=== PATIENT | male | born 1955 | race Caucasian/White ===

== ENCOUNTER 2019-04-19 05:51 | Inpatient (IN) ==
--- NOTE | 2019-04-06 17:16 | PAT Medication Instructions ---
Medication Instructions Date of Service April 06, 2019 Home Medications amlodipine 5 mg PO QAM aspirin 81 mg PO QAM atorvastatin 20 mg PO QAM levothyroxine 50 mcg PO QAM losartan-hydrochlorothiazide 1 tab PO QAM meloxicam 15 mg PO QAM omeprazole 20 mg PO QAM ASK your surgeon for instructions meloxicam 15 mg PO QAM DO NOT take the morning of surgery losartan-hydrochlorothiazide 1 tab PO QAM Take morning of surgery With a small sip of water, OTHERWISE NOTHING TO EAT OR DRINK AFTER MIDNIGHT: amlodipine 5 mg PO QAM aspirin 81 mg PO QAM atorvastatin 20 mg PO QAM levothyroxine 50 mcg PO QAM omeprazole 20 mg PO QAM Other Notes If you have any questions please call us at [phone] or [phone] or [phone] or [phone]
--- NOTE | 2019-04-06 18:38 | History & Physical Report ---
Date of Service April 06, 2019 Date of Surgery: 04-19-19 Assessment & Plan (1) Osteoarthritis of left knee: Risks and benefits of procedure discussed in detail today, patient would like to proceed with a left total knee replacement at [facility] as scheduled. will obtain medical clearance prior to surgery as well as obtain PATs at [facility]. Will place on ASA 81mg po bid x 1 month post op, f/u 2 weeks post op for routine post-operative care and x-ray, sooner if having any problems. will make arrangements for OPPT at the time of discharge. At this point in time, has failed conservative measures and would like to proceed with surgical intervention. History of Present Illness Chief Complaint: left knee pain Primary Care Provider: Cory Cormier Mr Dinh is a 63 year old male who complains of left knee pain, presents for pre-op evaluation prior to a left total knee replacement. He presents with pain and stiffness on the left side. He states that the symptoms have been chronic non-traumatic. The symptoms occur constantly with intermittent worsening. Currently the patient states that the symptoms are moderate. The pain is described as sharp. currently rates his pain as 5/10. The symptoms are aggravated by ascending stairs, daily activities, descending stairs, first steps while awake, weight bearing and walking. In addition to left knee pain the patient is also experiencing joint pain, instability, limping, stiffness, loss of motion, cracking, decreased mobility and pain after activity. Prior NSAIDs include Mobic. previously had a right TKA and is doing well. Allergies Allergy/AdvReac Type Severity Reaction Status Date / Time levofloxacin Allergy Mild NAUSEA AND Unverified 04/04/19 10:07 VOMITING Home Medications Home Medications Medication Instructions Recorded Confirmed Type amlodipine 5 mg PO QAM 04/04/19 04/04/19 History aspirin 81 mg PO QAM 04/04/19 04/04/19 History atorvastatin 20 mg PO QAM 04/04/19 04/04/19 History levothyroxine 50 mcg PO QAM 04/04/19 04/04/19 History losartan-hydrochlorothiazide 1 tab PO QAM 04/04/19 04/04/19 History meloxicam 15 mg PO QAM 04/04/19 04/04/19 History omeprazole 20 mg PO QAM 04/04/19 04/04/19 History Past Med/Surg History Medical History Cancer SKIN CANCER REMOVED FROM NOSE AND CHEST GERD (gastroesophageal reflux disease) Gout Hiatal hernia Hyperlipidemia Hypertension Hypothyroidism Leaky heart valve FOLLOWS WITH DR. 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 Beliefs That Will Affect Care: None Current Living Situation: Spouse Other Information That Helps Us Care for You: No Feels Safe at Home: Yes Safety Concerns: Feels Safe At This Time Smoking Status: Former smoker Tobacco Type: cigarettes and smokeless tobacco Smoking End Date: QUIT OVER 30 YEARS AGO Second Hand Exposure: No Tobacco Cessation Education Requested by Patient: No Hx Alcohol Use: No Hx Substance Use: No Review of Systems Review of Systems: All systems reviewed & are unremarkable except as noted in HPI & below Constitutional: no fever, no chills and no sweats Respiratory: no cough and no dyspnea Cardiovascular: no chest pain, no dyspnea and no orthopnea Gastrointestinal: no abdominal pain, no nausea and no vomiting Musculoskeletal: as per Subjective / HPI Integumentary: no rash and no lesions Physical Exam Physical Exam: Ht: 5ft 4in Wt: 79.4kg BP: 112/68 Pulse: 62 Constitutional: WD/WN, vitals as above no acute distress Respiratory: normal respiratory effort, lungs clear to auscultation Cardiovascular: RRR, no murmur, no edema Gastrointestinal (Abdomen): normal bowel sounds, soft, nontender, no hepatosplenomegaly Musculoskeletal: Left Knee Physical Exam- He ambulates with a limp, no assistance devices, overall varus alignment. There is no erythema, ecchymosis or warmth, no atrophy, +1 effusion, maximum tenderness medial joint line. mild crepitation with motion, mahesh's Negative, posterior drawer negative. positive mcmurrays medially, negative anterior drawer, knee stable with valgus/varus stress. no extensor lag. pain with active range of motion, AROM 0/3/110, Passive ROM 0/3/115. No pain with active/passive ROM of ankle. Lower Extremity Strength normal. Lower Extremity Neuro-vascular is normal Results & Data Diagnostic Findings Left Knee X-ray from February 2019 shows left knee advanced degenerative changes, greatest medial compartments and patellofemoral joint, showing joint space narrowing, osteophyte formation and subchondral sclerosis. no acute bony pathology noted. no loose bodies. overall he has varus alignment.
--- NOTE | 2019-04-07 10:50 | Anesthesiology Consultation ---
Date of Service April 07, 2019 Assessment & Plan (1) Encounter for pre-operative examination: PCP Clearance 04/11: "Cleared for surgery with Dr. Ledezma. Labs reviewed." Chart Review Chart Review: Acceptable Risk for Surgery and Patient seen in Pre Admission Testing Teaching & Discussion Instructed NPO after midnight before surgery, except medications with 15 cc of water. Medication instructions provided according to the PAT guidelines. History Surgery Operation Date: 04/19/19 12:15 Proposed Procedures p Left Total Knee Arthroplasty - Jonathon Ledezma DO Height/Weight Height: 5 ft 4 in Weight: 82.6 kg Allergies Allergy/AdvReac Type Severity Reaction Status Date / Time levofloxacin Allergy Mild NAUSEA AND Unverified 04/04/19 10:07 VOMITING Medications Home Medications Medication Instructions Recorded Confirmed Last Taken amlodipine 5 mg PO QAM 04/04/19 04/04/19 Unknown aspirin 81 mg PO QAM 04/04/19 04/04/19 Unknown atorvastatin 20 mg PO QAM 04/04/19 04/04/19 Unknown levothyroxine 50 mcg PO QAM 04/04/19 04/04/19 Unknown losartan-hydrochlorothiazide 1 tab PO QAM 04/04/19 04/04/19 Unknown meloxicam 15 mg PO QAM 04/04/19 04/04/19 Unknown omeprazole 20 mg PO QAM 04/04/19 04/04/19 Unknown Past Medical History Medical History Cancer SKIN CANCER REMOVED FROM NOSE AND CHEST GERD (gastroesophageal reflux disease) Gout Hiatal hernia Hyperlipidemia Hypertension Hypothyroidism Osteoarthritis Restless leg syndrome Valvular heart disease MILD TRICUSPID, MITRAL AND PULMONIC REGURGITATION Exercise / Class Metabolic Activity II 4-5 Yardwork/Stairs/Walk up hill (Denies CP or SOB with stairs, pt states he is pretty active) Past Family History Family History Unknown Hypertension High cholesterol Father Coronary heart disease Past Surgical History Surgical History H/O hemorrhoidectomy History of bunionectomy RT History of carpal tunnel release RT/LEFT History of colonoscopy History of esophagogastroduodenoscopy (EGD) History of nasal septoplasty History of repair of rotator cuff RT History of tooth extraction History of total knee replacement RT Past Anesthesia History No Hx of Anesthesia Complications and No Family Hx of Anesthesia Complications History of PONV No Hx of PONV (NAUSEA ONLY AFTER SHOULDER SCOPE) and Hx of Motion Sickness (seasick) Social History Smoking Status: Former smoker tobacco type: cigarettes and smokeless tobacco Do You Dip or Chew Tobacco: No (quit 30yrs ago) Smoking End Date: QUIT OVER 30 YEARS AGO Hx Alcohol Use: No Hx Substance Use: No substance use type: does not use Review of Systems Pt denies any recent chest pain, shortness of breath, palpitations, cough, fever or URI. Physical Exam Vital Signs BP: 127/72 P: 59bpm SPO2: 97% RA T: 97.9 F R: 12 ENMT Mouth: + dentures (partial upper); no chipped teeth and no loose teeth Thyromental Distance: < 3.5 Finger Breadths (2.5) Mallampati Class: I Neck + short neck; neck extension not limited Respiratory normal respiratory effort Auscultation: lungs clear to auscultation bilaterally Cardiovascular Rate/Rhythm: regular rate and regular rhythm Heart Sounds: no murmur Vessels: no carotid bruit Extremities: no edema Testing Laboratory Results 03/09/19 WBC: 4.88 H/H: 14.0/41.1 PLATELETS: 289 SODIUM: 142 POTASSIUM: 3.8 CHLORIDE: 109 CO2: 25 BUN: 21.9 CREATININE: 0.91 GLUCOSE: 101 A1C: 5.4% Electrocardiogram Date: 04/07/19 Findings: + NSR @ (60 with 1st degree AV block) No significant change from 01/01/12 EKG. Chest X-Ray Date: 04/07/19 Findings: + NAD Echocardiogram Date: 12/08/18 EF: 55% Normal left ventricular wall motion and ejection fraction. Mild left ventricular hypertrophy. Sclerotic changes involving both the aortic and mitral valve leaflets. Mild mitral, tricuspid, and pulmonic valvular insufficiency. Stress Test Date: 12/08/18 Type: nuclear Resting EF: 54% Normal myocardial perfusion SPECT images without evidence for exercise-induced ischemia. Normal LV wall motion and thickening.
--- NOTE | 2019-04-07 11:35 | XRay Report ---
XR chest Pre-admission PA/Lat HISTORY: 63 years-old Male pat preoperative exam. No acute chest complaints COMPARISON: Chest radiograph 01/01/2012 TECHNIQUE: PA and lateral views of the chest FINDINGS: Cardiomediastinal and hilar silhouettes are within normal limits. Lungs are mildly hyperinflated. The re is no pneumothorax, pleural effusion, focal airspace consolidation or overt pulmonary edema. Bones of the chest appear grossly intact. IMPRESSION: No acute process. The above report was generated using voice recognition software. It may contain grammatical, syntax o r spelling errors. Electronically signed by: Israel Ayon M.D. 04/07/2019 11:33 AM
[2019-04-07 11:58] LABS: Appearance Urine Clear (Clear); Bilirubin Urine Negative (Negative); Blood Urine Negative (Negative); Color Urine Yellow; Glucose Urine UA Negative (Negative); Ketones Urine Negative (Negative); Leukocyte Esterase Urine Negative (Negative); Nitrite Urine Negative (Negative); Protein Urine Negative (Negative); Specific Gravity Urine 1.009 (1.000-1.030); Urobilinogen Urine Negative (Negative)
[2019-04-07 12:08] LABS: Partial Thromboplastin Time 27.4 Seconds (21.0-31.0)
[2019-04-07 12:38] LABS: Estimated Average Glucose 108 mg/dl; Hemoglobin A1C 5.4 % (4.5-5.6)
[2019-04-19] MEDS ORDERED: TRANEXAMIC ACID 1,000 MG **IV Pre-op IV SCH (06:00)
[2019-04-19] MEDS ORDERED: LR 500ML BOLUS, THEN 15ML/HR IV SCH (06:00)
[2019-04-19] MEDS ORDERED: METOCLOPRAMIDE HCL 10 MG TABLET PO SCH (06:00)
[2019-04-19] MEDS ORDERED: dexAMETHasone 4 MG TAB PO SCH (06:00)
[2019-04-19] MEDS ORDERED: ACETAMINOPHEN 500 MG TAB PO SCH (06:00)
[2019-04-19] MEDS ORDERED: FAMOTIDINE 20 MG TAB PO SCH (06:00)
[2019-04-19] MEDS ORDERED: ROPIVACAINE 0.5% HCL/PF 150 MG, BUPIVACAINE 0.5% MPF 30 ML, EPINEPHrine 30MG/30ML (OR U... INFIL SCH (06:00)
[2019-04-19] MEDS ORDERED: CEFAZOLIN 2000MG 2,000 MG/15 ML SYR IV SCH (06:00)
[2019-04-19] MEDS ORDERED: CeleBREX 200 MG CAP PO SCH (06:00)
[2019-04-19] MEDS ORDERED: GABAPENTIN 300 MG PO SCH (06:00)
[2019-04-19] MEDS ORDERED: BUPIVACAINE 0.5 % 5 MG/1 ML PF 10ML VIAL ONE (06:26)
[2019-04-19] MEDS ORDERED: ROPIVACAINE 0.5% 5 MG/ML 30 ML VIAL ONE (06:26)
[2019-04-19] MEDS ORDERED: TRANEXAMIC ACID 1,000 MG **IV Intra-op IV SCH (06:30)
[2019-04-19] MEDS ORDERED: MIDAZOLAM HCL 1 MG/ML 2ML VIAL ONE (06:35)
[2019-04-19] MEDS ORDERED: fentaNYL citrate 100 MCG/2 ML VIAL ONE (06:35)
[2019-04-19] MEDS ORDERED: LIDOCAINE HCL 2% 2 ML VIAL/AMP(20MG/ML) INFIL ONE (06:48)
[2019-04-19] MEDS ORDERED: PROPOFOL IV EMULSION 10 MG/ML 20 ML VIAL IV ONE (06:48)
--- NOTE | 2019-04-19 07:03 | History & Physical Bridge Note ---
Date of Service April 19, 2019 History & Physical Bridge Note I have examined the patient, reviewed the History & Physical and in the interval since the performance of the History & Physical I have noted the following changes of clinical significance: no changes noted
[2019-04-19] MEDS ORDERED: POVIDONE-IODINE OP SOLN 30 ML BTL ONE (07:07)
[2019-04-19] MEDS ORDERED: ORTHO JOINT ANESTHETIC ONE (07:07)
[2019-04-19] MEDS ORDERED: BACITRACIN INJ 50,000 UNIT VIAL ONE (07:07)
[2019-04-19] MEDS ORDERED: fentaNYL citrate 100 MCG/2 ML VIAL IV PRN (07:23)
[2019-04-19] MEDS ORDERED: ONDANSETRON INJ 2 MG/ML 2 ML VIAL IV PRN ×2 (07:23→10:58)
[2019-04-19] MEDS ORDERED: ATROPINE SULFATE 0.1 MG/ML 10ML SYR IV PRN (07:23)
[2019-04-19] MEDS ORDERED: ePHEDrine sulfate 50 MG/ML AMP IV PRN (07:23)
--- NOTE | 2019-04-19 09:14 | Operative Report ---
Post Operative Report Pre & Post Diagnosis Operation Date: 04/19/19 08:20 Pre-Op Diagnosis: Unilateral Primary Osteoarthritis, Left Knee Post-Op Diagnosis: Unilateral Primary Osteoarthritis, Left Knee Procedure Operation Date: 04/19/19 08:20 Actual Procedures p Left Total Knee Arthroplasty(Left) utilizing [employer] non-block total knee arthroplasty size 6 femur 6 tibia 9 polyethylene 32 oval patella- Jonathon Ledezma DO Surgeon Jonathon Ledezma DO Cotton Agent Kemar KHAN Estimated Blood Loss 5 Findings Consistent with Post-Op Diagnosis Patient presents with severe end-stage tricompartmental degenerative disease of left knee no response to conservative management patient said the findings at times surgery consistent with subchondral sclerosis marginal osteophytes [id number] eburnated bone with a moderate to large effusion patient's been no response to conservative management Specimens Bone and cartilage Drains Medium bore Hemovac Complications none Disposition Accompanied Patient To Recovery: No Disposition: Recovery Room Indications Patient presents with severe end-stage tricompartmental degenerative disease left knee no response to conservative management and physical therapy anti- inflammatories relative rest activity modification Visco supplementation corticosteroid injection patient has above intraoperative findings noted to times surgery Description of Procedure After proper prepping and draping of the left lower extremity anterior midline incision was made over the region of the extensor extensor mechanism after meticulous hemostasis was obtained and maintained in subcutaneous tissues a medial parapatellar incision was made The patella was subluxed lateralward the medial lateral gutter were cleaned from any hypertrophic synovitis and scar tissue of the distal femoral block was placed and the distal femoral osteotomy cut was made subsequently the chamfers anterior and posterior osteotomy cuts were made utilizing the 4-in-1 block the tibia was subsequently subluxed anteriorward medial and ateral meniscal remnants were excised in their entirety remnants of the anterior and posterior cruciate ligaments were excised in their entirety excellent exposure of the proximal tibia was obtained the tibial osteotomy guide was placed on the proximal tibial osteotomy cut was made once again the knee was irrigated with copious amounts of sterile saline solution the patella was subsequently everted lateralward thickened scar tissue around the patella was removed the patella was subsequently cut utilizing a freehand technique and was drilled prepared for final preparation and placement of patella socially flexion-extension gaps were checked and the equal and symmetric trials were placed to the appropriate femoral and tibial trials with poly-spacer being placed for equal flexion and extension gaps and full range of motion including extension to 0 and flexion to 140� the trial components after having been taken to recovery range of motion was subsequently removed meticulous hemostasis was obtained and maintained subsequently a knee block injection of joint cocktail including ropivacaine 0.5% 150 mg. Bupivacaine 0.5% epinephrine 1-200,030 mL's toradol 30 mg dexamethasone 4 mg ketamine 10 mg clonidine 100 micrograms normal saline solution 30 mg was infiltrated into the soft tissues of the posterior knee medial lateral gutters and periosteal synovium special attention was paid to protect neurovascular structures at all times subsequently trial components having been removed the knee was irrigated with sterile saline solution. debris was removed the proximal tibia was subsequently prepared and was made ready for the placement of the tibial component tibial component was also cemented and tamped into position the femoral component was subsequently placed and cemented in the position the patellar component was subsequently cemented in position because hemostasis once again obtained and maintained wound having been thoroughly irrigated with debridement and debridement lavage was performed as well as a medial parapatellar incision closed with #1 Vicryl in interrupted fashion subcutaneous was closed with #2 Vicryl skin was closed with skin clips. PA-C was necessary for prepping and drapping as well as wound closure of deep fascia Sub cutaneous tissue and skin and was necessary for the case. A sterile compressive dressing was placed patient was taken to recovery in stable condition of report dictated by Darien I attest to the content of the Intraoperative Record and any orders documented therein. Any exceptions are noted below. I attest to the content of the Intraoperative Record and any orders documented therein. Any exceptions are noted below.
[2019-04-19] MEDS ORDERED: ONDANSETRON INJ 2 MG/ML 2 ML VIAL ONE (09:16)
--- NOTE | 2019-04-19 10:40 | Anesthesiology Progress Note ---
Date of Service April 19, 2019 Anesthesia Post Procedure Vital Signs Vital Signs: Temp Pulse Pulse Pulse Resp BP BP 04/19/19 10:38 97.5 F L 04/19/19 10:35 61 14 04/19/19 10:30 60 12 115/56 L 04/19/19 10:25 61 14 105/62 04/19/19 10:21 65 16 105/63 04/19/19 10:20 64 14 04/19/19 10:15 61 12 96/62 L 04/19/19 10:10 63 14 106/61 04/19/19 10:07 65 12 04/19/19 10:05 66 14 102/47 L 04/19/19 10:04 98.2 F 65 68 14 98/52 L 98/52 L 04/19/19 06:17 98.1 F 64 18 128/83 Pulse Ox 04/19/19 10:38 96 04/19/19 10:35 96 04/19/19 10:30 97 04/19/19 10:25 98 04/19/19 10:21 99 04/19/19 10:20 99 04/19/19 10:15 99 04/19/19 10:10 99 04/19/19 10:07 98 04/19/19 10:05 99 04/19/19 10:04 99 04/19/19 06:17 98 Pain Intensity Left Knee: Pain Intensity: 0 Transfer of Care Handoff Completed per policy Notes Mental Status: alert / awake / arousable and participated in evaluation Patient Amnestic to Procedure: Yes Nausea / Vomiting: adequately controlled Pain: adequately controlled Airway Patency, RR, SpO2: stable & adequate BP & HR: stable & adequate Hydration State: stable & adequate Neuraxial Anesthesia: was administered and sensory block is resolving Anesthetic Complications: no major complications apparent and Pt Satisfied with anesthetic care
[2019-04-19] MEDS ORDERED: MAGNESIUM HYDROXIDE SUSP 30 ML UDC PO PRN (10:58)
[2019-04-19] MEDS ORDERED: NALOXONE HCL 0.4 MG/1 ML VIAL/CARP IV PRN (10:58)
[2019-04-19] MEDS ORDERED: OXYCODONE HCL IR 5 MG TAB (IMMEDIATE RELEASE) PO PRN (10:58)
[2019-04-19] MEDS ORDERED: HYDROmorphone INJ 0.5 MG/0.5 ML SYR IV PRN (10:58)
[2019-04-19] MEDS ORDERED: BISACODYL 10 MG SUPP PR PRN (10:58)
--- NOTE | 2019-04-19 10:58 | XRay Report ---
LEFT KNEE 2 VIEWS History: Left total knee arthroplasty. Degenerative arthritis. Postop. FINDINGS: The patient is status post a left total knee arthroplasty. The hardware is intact. No fract ure or dislocation. Surgical drains are in place. IMPRESSION: Left total knee arthroplasty. No evidence for hardware complication. Electronically signed by: Say Oliveira M.D. 04/19/2019 10:57 AM
[2019-04-19] MEDS ORDERED: SODIUM CHLORIDE 0.9% 1000ML 1,000 ML IV SCH (12:10)
[2019-04-19] MEDS: ACETAMINOPHEN 500 MG TAB PO SCH ×2 (13:12→22:02)
[2019-04-19] MEDS: CEFAZOLIN 2000MG 2,000 MG/15 ML SYR IV SCH (17:09)
[2019-04-19] MEDS: FERROUS GLUCONATE 324 MG TAB PO SCH (17:09)
[2019-04-19] MEDS: DOCUSATE SODIUM 100 MG CAP PO SCH (20:24)
[2019-04-19] MEDS: SENNA 8.6 MG TAB PO SCH (20:24)
[2019-04-19] MEDS: ASPIRIN 81 MG ECTAB PO SCH (20:24)
[2019-04-20] MEDS: CEFAZOLIN 2000MG 2,000 MG/15 ML SYR IV SCH (01:05)
[2019-04-20] MEDS: ACETAMINOPHEN 500 MG TAB PO SCH ×3 (06:02→22:13)
[2019-04-20] MEDS: LEVOTHYROXINE SODIUM 50 MCG TABLET PO SCH (06:02)
[2019-04-20 07:01] LABS: Hemoglobin 10.8 g/dL (14.0-18.0); Mean Corpuscular Volume 84.5 fL (80-100); Mean Platelet Volume 7.8 fL (7.4-10.4); Platelet Count 185 K/uL (130-400); RDW Coefficient of Variation 11.9 % (11.5-14.5); RDW Standard Deviation 37.1 fL (36.4-46.3); Red Blood Count 3.55 M/uL (4.7-6.1)
[2019-04-20 07:30] LABS: BUN Creatinine Ratio 21.4 (10-20); Calcium 8.2 mg/dl (8.5-10.1); Creatinine Clr Calc Pharmacy 75.9 ml/min; Est GFR (African American) 100.1; Est GFR (Non-African American) 86.4; Potassium 3.7 mmol/L (3.5-5.1)
[2019-04-20] MEDS: PANTOprazole 40 MG TAB PO SCH (08:17)
[2019-04-20] MEDS: MULTIVITAMIN TAB PO SCH (08:17)
[2019-04-20] MEDS: ATORVASTATIN 20 MG TAB PO SCH (08:17)
[2019-04-20] MEDS: LOSARTAN/HCTZ 50/12.5MG TAB PO SCH (08:18)
[2019-04-20] MEDS: DOCUSATE SODIUM 100 MG CAP PO SCH ×2 (08:18→20:23)
[2019-04-20] MEDS: ASPIRIN 81 MG ECTAB PO SCH ×2 (08:18→20:23)
[2019-04-20] MEDS: FERROUS GLUCONATE 324 MG TAB PO SCH ×2 (08:18→17:41)
[2019-04-20] MEDS: AMLODIPINE BESYLATE 5 MG TAB PO SCH (08:18)
--- NOTE | 2019-04-20 10:21 | Orthopedic Progress Note ---
Date of Service April 20, 2019 Subjective Postop day 1 status post left total knee arthroplasty. PT/OT protocols today. Weightbearing as tolerated. DVT prophylaxis with aspirin twice daily, Ellie Sagastume. Pain management with acetaminophen, oxycodone, hydromorphone. DC planning-patient is planning on outpatient PT upon discharge. Patient's current Hemovac drainage was 200 cc out of his drain from the last shift. Continue Hemovac at this time. Results & Data Vital Signs (Past 12 Hours) Vital Signs Temp Pulse Pulse Resp BP BP Pulse Ox 04/20/19 07:37 36.6 C 63 16 102/59 L 96 04/20/19 03:55 36.6 C 88 15 112/66 93 04/19/19 23:45 36.7 C 80 15 111/76 97
--- NOTE | 2019-04-20 10:36 | Anesthesiology Progress Note ---
Date of Service April 20, 2019 Anesthesia Post Procedure Vital Signs Vital Signs: Temp Pulse Pulse Pulse Pulse Resp BP 04/20/19 07:37 36.6 C 63 16 04/20/19 03:55 36.6 C 88 15 04/19/19 23:45 36.7 C 80 15 04/19/19 19:48 36.4 C L 74 16 04/19/19 14:50 36.8 C 62 16 04/19/19 13:28 36.8 C 64 20 04/19/19 12:28 36.8 C 68 20 04/19/19 11:55 36.7 C 66 16 04/19/19 11:17 36.5 C 61 16 04/19/19 10:55 36.5 C 62 16 04/19/19 10:40 65 12 103/62 04/19/19 10:38 36.4 C L BP BP Pulse Ox 04/20/19 07:37 102/59 L 96 04/20/19 03:55 112/66 93 04/19/19 23:45 111/76 97 04/19/19 19:48 126/74 98 04/19/19 14:50 103/65 96 04/19/19 13:28 116/64 96 04/19/19 12:28 106/67 97 04/19/19 11:55 111/74 96 04/19/19 11:17 108/70 98 04/19/19 10:55 109/66 96 04/19/19 10:40 95 04/19/19 10:38 96 Pain Intensity Left Knee: Pain Intensity: 0 Notes Mental Status: alert / awake / arousable and participated in evaluation Patient Amnestic to Procedure: Yes Nausea / Vomiting: adequately controlled Pain: adequately controlled Airway Patency, RR, SpO2: stable & adequate BP & HR: stable & adequate Hydration State: stable & adequate Anesthetic Complications: no major complications apparent and Pt Satisfied with anesthetic care
[2019-04-20] MEDS: SENNA 8.6 MG TAB PO SCH (20:23)
[2019-04-21] MEDS: ACETAMINOPHEN 500 MG TAB PO SCH (06:07)
[2019-04-21] MEDS: LEVOTHYROXINE SODIUM 50 MCG TABLET PO SCH (06:07)
--- NOTE | 2019-04-21 07:30 | Orthopedic Progress Note ---
Date of Service April 21, 2019 Assessment & Plan (1) Status post total left knee replacement: POD #1 s/p left TKA pt/ot dvt proph with ADRY/SCD/ASA plan for d/c home with OPPT when stable Subjective POD #2 s/p Left TKA DENIES CP/SOB DENIES FEVER/CHILLS PAIN CURRENTLY 11/24 Review of Systems Constitutional: no fever and no chills Physical Exam Physical Exam: Vital Signs Temp Pulse Resp BP Pulse Ox 04/20/19 23:32 36.8 C 72 15 103/61 97 04/20/19 15:00 36.6 C 60 16 118/73 97 04/20/19 12:24 36.6 C 72 16 143/80 H 98 04/20/19 07:37 36.6 C 63 16 102/59 L 96 Intake and Output 04/20/19 04/21/19 04/21/19 22:59 06:59 14:59 Intake Total 750 / 1400 100 / 1400 Output Total 225 / 600 100 / 600 Balance 525 / 800 0 / 800 Intake: Oral 750 / 1400 100 / 1400 Output: Drain Output 225 / 600 100 / 600 Left Knee Hemo vac 225 / 600 100 / 600 Other: # Unmeasured Voi ds 1 Constitutional: WD/WN, vitals as above no acute distress Musculoskeletal: LEFT LEG: NVDI, calf SNT, negative peter sign. DP palpable, able to wiggle toes/ankle movement without difficulty. prinea dressing clean dry and intact. expected post-operative bruising noted. Results & Data Vital Signs (Past 12 Hours) Vital Signs Temp Pulse Resp BP Pulse Ox 04/20/19 23:32 36.8 C 72 15 103/61 97 Diagnostic Findings LEFT KNEE 2 VIEWS History: Left total knee arthroplasty. Degenerative arthritis. Postop. FINDINGS: The patient is status post a left total knee arthroplasty. The hardware is intact. No fracture or dislocation. Surgical drains are in place. IMPRESSION: Left total knee arthroplasty. No evidence for hardware complication.
[2019-04-21] MEDS: MULTIVITAMIN TAB PO SCH (07:46)
[2019-04-21] MEDS: PANTOprazole 40 MG TAB PO SCH (07:48)
[2019-04-21] MEDS: LOSARTAN/HCTZ 50/12.5MG TAB PO SCH (07:48)
[2019-04-21] MEDS: DOCUSATE SODIUM 100 MG CAP PO SCH (07:48)
[2019-04-21] MEDS: ASPIRIN 81 MG ECTAB PO SCH (07:48)
[2019-04-21] MEDS: FERROUS GLUCONATE 324 MG TAB PO SCH (07:48)
[2019-04-21] MEDS: ATORVASTATIN 20 MG TAB PO SCH (07:48)
[2019-04-21] MEDS: AMLODIPINE BESYLATE 5 MG TAB PO SCH (07:50)
--- NOTE | 2019-04-26 02:12 | Discharge Summary ---
DISCHARGE DIAGNOSIS: Degenerative joint disease, left knee. SECONDARY DIAGNOSES: History of gastroesophageal reflux disease, skin carcinoma, gout, hiatal hernia, hyperlipidemia, hypertension, hypothyroidism, valvular regurgitation, osteoarthritis and restless legs syndrome. CONSULTS: None. COMPLICATIONS: None. PROCEDURES: Left total knee arthroplasty performed by Dr. Ledezma on 04/19/2019. BRIEF HISTORY: As dictated in history and physical. HOSPITAL SUMMARY: The patient was admitted on the above-noted date and had the above-noted surgery performed, which he tolerated well. On the first postoperative day, the patient was remaining stable. Vital signs were stable. He was afebrile and was started on physical therapy and occupational therapy protocol, weightbearing as tolerated. Deep venous thrombosis prophylaxis with aspirin twice daily and ADRY hose and see sequential compression devices, continued on pain management with acetaminophen, oxycodone and hydromorphone. The patient was planning for outpatient physical therapy on discharge. His current Hemovac drainage was 200 mL out of his drain for the last shift, but continued Hemovac at that time. He was continued on his protocol and by 04/21/2019, he had no complaints. Pain was controlled. Vital signs were stable. Neurovascularly, he was intact. Calves were soft and nontender. Toes were mobile. Dressings clean, dry and intact and he was progressing well with his physical therapy and was discharged to home with outpatient physical therapy on 04/21/2019. For further review, please see chart. LABORATORY AND X-RAY DATA: As per chart. DISCHARGE INSTRUCTIONS: The patient was discharged home in satisfactory condition on 04/21/2019. DIET: Regular. ACTIVITY: Weightbearing as tolerated, left lower extremity with walker. Follow TK instruction sheets and special care instructions as noted. Follow up with Dr. Ledezma in 2 weeks. The patient is to call for appointment if one has not been made for. DISCHARGE MEDICATIONS: Acetaminophen 1000 mg p.o. q. 8 hours p.o. t.i.d. , cefadroxil 500 mg p.o. b.i.d., Colace 100 mg p.o. b.i.d. and oxycodone 5 mg p.o. q. 6 hours p.r.n. Resume home medications as listed and stop taking previous aspirin dose and meloxicam. MTDD
== END 2019-04-21 14:05 | disposition home or self-care (01) | DRG 470 ==
LOC: ASU 05:51 → 3E 10:07

== ENCOUNTER 2019-06-10 23:21 | Inpatient (IN) ==
[2019-06-11] MEDS ORDERED: MoRPHine SULFATE 2 MG/ML CARP IV PRN (01:33)
[2019-06-11] MEDS ORDERED: cefTRIAXone SODIUM 1,000 MG/50 ML BAG IV STA (01:33)
[2019-06-11] MEDS ORDERED: ONDANSETRON INJ 2 MG/ML 2 ML VIAL IV PRN ×3 (01:33→11:42)
[2019-06-11] MEDS ORDERED: ACETAMINOPHEN 1,000 MG/100 ML VIAL IV PRN (01:33)
[2019-06-11] MEDS ORDERED: HydrALAZINE HCL 20 MG/ML VIAL IV PRN (01:38)
[2019-06-11] MEDS ORDERED: cefTRIAXone SODIUM 2,000 MG in DEXTROSE 5% 50 ML IV STA (01:50)
[2019-06-11 01:55] LABS: Basophils # (auto) 0.02 K/uL (0-0.2); Basophils % (auto) 0.2 %; Eosinophils # (auto) 0.02 K/uL (0-0.5); Eosinophils % (auto) 0.2 %; Hematocrit (blood only) 35.1 % (42-52); Hemoglobin 12.3 g/dL (14.0-18.0); Immature Granulocytes # (auto) 0.02 K/uL (0.00-0.02); Immature Granulocytes % (auto) 0.2 %; Lymphocytes # (auto) 2.11 K/uL (1.2-3.4); Mean Corpuscular Volume 84.4 fL (80-100); Mean Platelet Volume 7.6 fL (7.4-10.4); Monocytes # (auto) 0.58 K/uL (0.11-0.59); Monocytes % (auto) 6.9 %; Neutrophils # (auto) 5.68 K/uL (1.4-6.5); Neutrophils % (auto) 67.5 %; Platelet Count 211 K/uL (130-400); RDW Coefficient of Variation 12.5 % (11.5-14.5); RDW Standard Deviation 38.3 fL (36.4-46.3); Red Blood Count 4.16 M/uL (4.7-6.1); White Blood Count 8.43 K/uL (4.8-10.8)
[2019-06-11] MEDS: NSS + 20MEQ KCL 20 MEQ/1,000 ML BAG IV SCH ×2 (02:01→15:57)
--- NOTE | 2019-06-11 02:02 | History & Physical Report ---
Date of Service June 11, 2019 Assessment & Plan (1) Traumatic wound dehiscence: Traumatic wound dehiscence of left total knee replacement from 04/19/2019- Admits to medical surgical floor. N.p.o. Check CBC with differential and chemistry profile. NSS + KCl 20 mEq at 100 mils per hour. Acetaminophen 1 g IV every 8 hours PRN mild pain or temperature. Morphine sulfate 2 mg IV every 4 hours as needed severe pain. Activity will be bedrest with bathroom privileges with nonweightbearing left leg. Give ceftriaxone 1 g IV now, due to unclean area where he fell. Consult Dr. Jimenez from [facility] Present on Admission?: Yes (2) Status post total left knee replacement: See above. Present on Admission?: Yes (3) Hypertension: While patient is n.p.o., hold amlodipine, losartan/HCTZ and aspirin. Hydralazine 10 mg IV every 4 hours as needed systolic blood pressure greater than 160. Present on Admission?: Yes (4) Hyperlipidemia: Hold atorvastatin while patient is n.p.o. Present on Admission?: Yes (5) Hypothyroidism (acquired): Hold levothyroxine while patient is n.p.o. Present on Admission?: Yes (6) GERD (gastroesophageal reflux disease): Hold omeprazole. Place on famotidine 20 mg IV x1 this a.m. Present on Admission?: Yes (7) Restless leg syndrome: No symptoms and no treatment at this time. Present on Admission?: Yes (8) Gout: No symptoms and no treatment at this time Present on Admission?: Yes (9) Hiatal hernia: Holding omeprazole, and placing on famotidine IV preoperatively. Present on Admission?: Yes History of Present Illness Chief Complaint: The patient presents to [facility] as a transfer from [facility] where he presented with left knee wound dehiscence post fall. Primary Care Provider: Cory Cormier The patient is a 64-year-old male who underwent a left total knee replacement by Dr. Franko Ledezma during admission from 04/19-04/21/2019. His postop recovery was normal in hospital, and patient reports not having any issues afterwards until yesterday 06/10. Patient reports that he was working outside, when someone he was working above him yelled watch out. As a shingle was falling, to avoid being hit, he took a few quick steps to get out of the way, tripped over wood and other objects on the deck, and landed on his left knee, and immediately noted that the surgical wound had opened and there was a small amount of bleeding. BLS was initially called, and when the patient became lightheaded and dizzy upon seeing the wound, ALS arrived and placed an IV and patient received a 700 cc fluid bolus. He was then taken to [facility], where x-rays were performed. Dr. Jimenez from [facility], who was covering for Dr. Ledezma was contacted, advised the ED physician there to wash the joint out, give 2 g of Ancef IV, and then transfer to [facility] for surgical washout the next day. The [facility] Hospitalist Service was contacted to have the patient transferred and admit the patient to [facility]. Allergies Allergy/AdvReac Type Severity Reaction Status Date / Time levofloxacin [From Levaquin] AdvReac Mild Nausea Verified 04/19/19 06:14 Home Medications Home Medications Medication Instructions Recorded Confirmed Type amlodipine 5 mg PO QAM 04/04/19 04/19/19 History atorvastatin 20 mg PO QAM 04/04/19 04/19/19 History levothyroxine 50 mcg PO QAM 04/04/19 04/19/19 History losartan-hydrochlorothiazide 1 tab PO QAM 04/04/19 04/19/19 History omeprazole 20 mg PO QAM 04/04/19 04/19/19 History oxycodone 5 mg PO Q6H PRN #30 tab 04/21/19 Rx aspirin [Ecotrin Low Strength] 06/11/19 History meloxicam 06/11/19 History Past Med/Surg History Medical History Cancer SKIN CANCER REMOVED FROM NOSE AND CHEST GERD (gastroesophageal reflux disease) Gout Hiatal hernia Hyperlipidemia Hypertension Hypothyroidism Osteoarthritis Restless leg syndrome Valvular heart disease MILD TRICUSPID, MITRAL AND PULMONIC REGURGITATION Surgical History H/O hemorrhoidectomy History of bunionectomy RT History of carpal tunnel release RT/LEFT History of colonoscopy History of esophagogastroduodenoscopy (EGD) History of nasal septoplasty History of repair of rotator cuff RT History of tooth extraction History of total knee replacement RT & LT Social History Preferred Language: Citizen Of [place] Communication Ability: Effective Legal Support Assistant Required: No Beliefs That Will Affect Care: None Current Living Situation: Spouse Other Information That Helps Us Care for You: No Feels Safe at Home: Yes Safety Concerns: Feels Safe At This Time Smoking Status: Former smoker Tobacco Type: cigarettes and smokeless tobacco Do You Dip or Chew Tobacco: No (Quit over 30 yrs ago) Second Hand Exposure: No Tobacco Cessation Education Requested by Patient: No Hx Alcohol Use: No Hx Substance Use: No Review of Systems Review of Systems: The patient denies chest pain, palpitations, shortness of breath, dyspnea on exertion, cough, sore throat, fevers, chills, sweats, weight change, fatigue, nausea, vomiting, diarrhea , constipation, abdominal pain, pelvic pain, blood in urine or stool, dysuria, urinary frequency or urgency,headache, memory loss, loss of consciousness, Focal or generalized weakness, numbness or tingling in arms or right leg, generalized arthralgias or myalgias, back or neck pain, or night sweats. The review of systems is otherwise negative other than for that already noted above, and at least 10 systems have been reviewed. Physical Exam Physical Exam: The patient is awake, alert and oriented 3, well developed and well nourished, lying in bed and in no acute distress. HEENT--PERRL, EOMI, mucous membranes and oropharynx normal. Neck--supple. No JVD. No bruits. Thyroid normal, trachea midline, no adenopathy. Heart--normal S1 and S2. No murmurs, rubs or gallops. Lungs--clear bilaterally, no respiratory distress, no accessory muscle use. Abdomen--normal bowel sounds and soft. Nontender. Nondistended, no hernias or masses, no organomegaly. Extremities--no cyanosis or clubbing. No edema. There are good distal pulses b/l. Dermatologic--normal skin turgor, normal color, no abnormal lymph nodes, no rash. Neurologic--cranial nerves II through XII grossly intact. Rheumatologic--left knee wrapped with wet-to-dry with BEKAH over top as discharged from [facility]. Psychiatric--normal affect. Results & Data Vital Signs (Past 12 Hours) Vital Signs Temp Pulse Resp BP Pulse Ox 07/28/19 01:06 98.4 F 81 18 163/91 H 98 Code Status & VTE Plan Code Status Full code VTE Prophylaxis Plan VTE Prophylaxis will be ordered: Yes PG Care Time/CCT Total # of Minutes Spent Total Time Spent with Patient: Total time spent is greater than 50% in coordination of care (as documented) at patient's floor/unit and/or counseling patient:
[2019-06-11 02:12] LABS: BUN Creatinine Ratio 18.9 (10-20); Calcium 9.2 mg/dl (8.5-10.1); Creatinine Clr Calc Pharmacy 59.2 ml/min; Est GFR (African American) 74.1; Est GFR (Non-African American) 63.9; Potassium 3.8 mmol/L (3.5-5.1)
[2019-06-11 02:15] LABS: Albumin Globulin Ratio 1.2 (0.9-2); Bilirubin,Total 0.4 mg/dl (0.2-1); Globulin 3.4 gm/dl (2.5-4.0); Total Protein 7.4 gm/dl (6.4-8.2)
[2019-06-11 02:25] LABS: Partial Thromboplastin Ratio 0.9; Partial Thromboplastin Time 25.3 Seconds (21.0-31.0); Prothrombin Time 10.6 Seconds (9.0-12.0)
--- NOTE | 2019-06-11 07:36 | Anesthesiology Consultation ---
Date of Service June 11, 2019 Assessment & Plan (1) Encounter for pre-operative examination: Chart Review Chart Review: Acceptable Risk for Surgery Consults Requested none ASA ASA3 Proposed Anesthesia Anesthesia Type: General Risk / Benefits Reviewed With: PT / POA / Parent / Guardian, Accepts Plan and Informed Consent Obtained History Surgery Operation Date: 06/11/19 09:30 Proposed Procedures p Incision and Drainage Knee(Left) - Kvng Jimenez DO s Poly Exchange(Left) - Kvng Jimenez DO Height/Weight Height: 5 ft 4 in Weight: 81.1 kg Allergies Allergy/AdvReac Type Severity Reaction Status Date / Time levofloxacin [From Levaquin] AdvReac Mild Nausea Verified 04/19/19 06:14 Medications Home Medications Medication Instructions Recorded Confirmed Last Taken amlodipine 5 mg PO QAM 04/04/19 04/19/19 04/19/19 04:30 atorvastatin 20 mg PO QAM 04/04/19 04/19/19 04/19/19 04:50 levothyroxine 50 mcg PO QAM 04/04/19 04/19/19 04/19/19 04:50 losartan-hydrochlorothiazide 1 tab PO QAM 04/04/19 04/19/19 04/18/19 11:00 omeprazole 20 mg PO QAM 04/04/19 04/19/19 04/19/19 04:50 oxycodone 5 mg PO Q6H PRN #30 tab 04/21/19 Unknown aspirin [Ecotrin Low Strength] 06/11/19 Unknown meloxicam 06/11/19 Unknown Active Medications Generic Name Dose Route Start Last Admin Trade Name Freq PRN Reason Stop Dose Admin Potassium Chloride/Sodium Chloride 20 meq in 1,000 mls @ 100 mls/hr 06/11/19 01:45 06/11/19 09:12 Normal Saline W/20 Meq Kcl IV 07/11/19 01:44 Infused .Q10H PASCUAL Infusion NPO Date Last Intake of Fluids: 06/11/19 Time Last Intake of Fluids: 00:40 Date Last Intake of Solids: 06/11/19 Time Last Intake of Solids: 00:40 Past Medical History Medical History Cancer SKIN CANCER REMOVED FROM NOSE AND CHEST GERD (gastroesophageal reflux disease) Gout Hiatal hernia Hyperlipidemia Hypertension Hypothyroidism Osteoarthritis Restless leg syndrome Valvular heart disease MILD TRICUSPID, MITRAL AND PULMONIC REGURGITATION Exercise / Class Metabolic Activity II 4-5 Yardwork/Stairs/Walk up hill Past Family History Family History Unknown Hypertension High cholesterol Father Coronary heart disease Past Surgical History Surgical History H/O hemorrhoidectomy History of bunionectomy RT History of carpal tunnel release RT/LEFT History of colonoscopy History of esophagogastroduodenoscopy (EGD) History of nasal septoplasty History of repair of rotator cuff RT History of tooth extraction History of total knee replacement RT & LT Past Anesthesia History No Hx of Anesthesia Complications and No Family Hx of Anesthesia Complications History of PONV No Hx of PONV and No Hx of Motion Sickness Social History Smoking Status: Former smoker tobacco type: cigarettes and smokeless tobacco Do You Dip or Chew Tobacco: No (Quit over 30 yrs ago) Hx Alcohol Use: No Hx Substance Use: No substance use type: does not use Physical Exam Vital Signs Last Vital Signs Temp 97.9 F 06/11/19 07:14 Pulse 70 06/11/19 07:14 Resp 18 06/11/19 07:14 BP 118/69 06/11/19 07:14 Pulse Ox 99 06/11/19 07:14 ENMT Mouth: no dentition abnormality Thyromental Distance: > or= 3.5 Finger Breadths Mallampati Class: II Neck normal visual inspection Respiratory normal respiratory effort Auscultation: lungs clear to auscultation bilaterally Cardiovascular Rate/Rhythm: regular rate and regular rhythm Testing Laboratory Results 06/11/19 01:47 06/11/19 01:47 PT 10.6 Seconds (9.0-12.0) 06/11/19 01:47 INR 1.0 (0.9-1.1) 06/11/19 01:47 APTT 25.3 Seconds (21.0-31.0) 06/11/19 01:47 Electrocardiogram Date: 04/07/19 Sinus rhythm with 1st degree A-V block, rate 60 bpm Otherwise normal ECG When compared with ECG of 01-JAN-2012 13:47, No significant change was found Confirmed by Elton Becker ([id number]) on 04/07/2019 1:05:25 PM Stress Test Date: 12/08/18 Type: nuclear Resting EF: 54% Normal myocardial perfusion SPECT images without evidence for exercise-induced ischemia. Normal LV wall motion and thickening.
[2019-06-11] MEDS ORDERED: FAMOTIDINE 20 MG in SYRINGE 3 ML IV ONE (08:00)
[2019-06-11] MEDS ORDERED: ePHEDrine sulfate 50 MG/ML AMP IV PRN (09:44)
[2019-06-11] MEDS ORDERED: fentaNYL citrate 100 MCG/2 ML VIAL IV PRN (09:44)
[2019-06-11] MEDS ORDERED: ATROPINE SULFATE 0.1 MG/ML 10ML SYR IV PRN (09:44)
--- NOTE | 2019-06-11 10:01 | History & Physical Report ---
Date of Service June 11, 2019 Assessment & Plan (1) Traumatic wound dehiscence: Patient will be taken to the OR today for left knee I & D, poly exchange. All potential risks, benefits, complications, alternatives, and rehab have been discussed with the patient and he wishes to proceed. (2) Status post total left knee replacement: History of Present Illness Chief Complaint: left knee pain and wound dehiscence Primary Care Provider: Cory Cormier This is a patient who had his left knee replaced by Dr. Ledezma ~7-8 weeks ago. He was doing well and states he was about to be discharged from PT. He sustained a fall onto the anterior aspect of the left knee and the incision opened up. He was brought to [facility] to be admitted and he is now being set up for surgical I & D of the knee. Allergies Allergy/AdvReac Type Severity Reaction Status Date / Time levofloxacin [From Levaquin] AdvReac Mild Nausea Verified 04/19/19 06:14 Home Medications Home Medications Medication Instructions Recorded Confirmed Type amlodipine 5 mg PO QAM 04/04/19 04/19/19 History atorvastatin 20 mg PO QAM 04/04/19 04/19/19 History levothyroxine 50 mcg PO QAM 04/04/19 04/19/19 History losartan-hydrochlorothiazide 1 tab PO QAM 04/04/19 04/19/19 History omeprazole 20 mg PO QAM 04/04/19 04/19/19 History oxycodone 5 mg PO Q6H PRN #30 tab 04/21/19 Rx aspirin [Ecotrin Low Strength] 06/11/19 History meloxicam 06/11/19 History Past Med/Surg History Medical History Cancer SKIN CANCER REMOVED FROM NOSE AND CHEST GERD (gastroesophageal reflux disease) Gout Hiatal hernia Hyperlipidemia Hypertension Hypothyroidism Osteoarthritis Restless leg syndrome Valvular heart disease MILD TRICUSPID, MITRAL AND PULMONIC REGURGITATION Surgical History H/O hemorrhoidectomy History of bunionectomy RT History of carpal tunnel release RT/LEFT History of colonoscopy History of esophagogastroduodenoscopy (EGD) History of nasal septoplasty History of repair of rotator cuff RT History of tooth extraction History of total knee replacement RT & LT Family History Unknown Hypertension High cholesterol Father Coronary heart disease Social History Preferred Language: Urdu Communication Ability: Effective Ep[employer] Fabrication Supervisor Required: No Beliefs That Will Affect Care: None Current Living Situation: Spouse Other Information That Helps Us Care for You: No Feels Safe at Home: Yes Safety Concerns: Feels Safe At This Time Smoking Status: Former smoker Tobacco Type: cigarettes and smokeless tobacco Do You Dip or Chew Tobacco: No (Quit over 30 yrs ago) Second Hand Exposure: No Tobacco Cessation Education Requested by Patient: No Hx Alcohol Use: No Hx Substance Use: No Physical Exam Constitutional: WD/WN, vitals as above ENMT: external ear and nose normal, oropharynx normal Neck: trachea midline, no thyromegaly Musculoskeletal: Knee: + surgical incision (left knee: anterior knee incision dehiscence) and + limited ROM of knee; no skin erythema Neurologic: normal touch/pain/proprioception Psychiatric: A+Ox3, euthymic affect Lymphatic: no cervical or axillary lymphadenopathy Results & Data Vital Signs (Past 12 Hours) Vital Signs Temp Pulse Resp BP Pulse Ox 06/11/19 07:14 36.6 C 70 18 118/69 99 06/11/19 03:59 75 119/74 06/11/19 01:06 36.9 C 81 18 163/91 H 98 Code Status & VTE Plan VTE Prophylaxis Plan VTE Prophylaxis will be ordered: Yes
[2019-06-11] MEDS ORDERED: fentaNYL citrate 100 MCG/2 ML VIAL ONE (10:12)
[2019-06-11] MEDS ORDERED: ONDANSETRON INJ 2 MG/ML 2 ML VIAL ONE (10:12)
[2019-06-11] MEDS ORDERED: MIDAZOLAM HCL 1 MG/ML 2ML VIAL ONE (10:12)
[2019-06-11] MEDS ORDERED: LIDOCAINE HCL 2% 2 ML VIAL/AMP(20MG/ML) INFIL ONE (10:12)
[2019-06-11] MEDS ORDERED: PROPOFOL IV EMULSION 10 MG/ML 20 ML VIAL IV ONE (10:12)
[2019-06-11] MEDS ORDERED: BACITRACIN INJ 50,000 UNIT VIAL ONE (10:13)
[2019-06-11] MEDS ORDERED: ePHEDrine sulfate 50 MG/ML SYR ONE (10:56)
[2019-06-11] MEDS ORDERED: BUPIVACAINE 0.5 % 5 MG/1 ML MPF 30ML VIAL ONE (11:31)
[2019-06-11] MEDS ORDERED: TAMSULOSIN HCL 0.4 MG CAP PO PRN (11:42)
[2019-06-11] MEDS ORDERED: METOCLOPRAMIDE HCL INJ 5 MG/ML 2 ML VIAL IV PRN (11:42)
[2019-06-11] MEDS ORDERED: ALUMINUM/MAGNESIUM SUSP 30 ML UDC PO PRN (11:42)
[2019-06-11] MEDS ORDERED: NALOXONE HCL 0.4 MG/1 ML VIAL/CARP IV PRN (11:42)
[2019-06-11] MEDS ORDERED: MAGNESIUM HYDROXIDE SUSP 30 ML UDC PO PRN (11:42)
[2019-06-11] MEDS ORDERED: OXYCODONE HCL IR 5 MG TAB (IMMEDIATE RELEASE) PO PRN (11:42)
[2019-06-11] MEDS ORDERED: HYDROmorphone INJ 0.5 MG/0.5 ML SYR IV PRN (11:42)
[2019-06-11] MEDS ORDERED: BISACODYL 10 MG SUPP PR PRN (11:42)
--- NOTE | 2019-06-11 11:48 | Post Operative Brief Note ---
Immediate Post Op Note v1 Date of Surgery June 11, 2019 Pre & Post Diagnosis Operation Date: 06/11/19 09:30 Pre-Op Diagnosis: Left knee traumatic Wound dehiscence Post-Op Diagnosis: Left knee traumatic Wound dehiscence, Left Knee effusion, Retained sutures Procedure Operation Date: 06/11/19 09:30 Actual Procedures p Irrigation and Debridement Left Knee, Skin, Fascia, and Patellar Tendon, Debridement of wound dehiscence, Removal of sutures, Aspiration left knee joint(Left) - Kvng Jimenez DO Surgeon Kvng Jimenez DO Cold Strip Feeder None Estimated Blood Loss 5 Findings Consistent with Post-Op Diagnosis Specimens Aspirate left knee for cell count with manual differential, Aerobic, Anaerobic and Gram stain Anesthesia Type General Complications none Disposition Accompanied Patient To Recovery: No Disposition: Recovery Room
--- NOTE | 2019-06-11 12:22 | Anesthesiology Progress Note ---
Date of Service June 11, 2019 Anesthesia Post Procedure Vital Signs Vital Signs: Temp Pulse Pulse Resp BP Pulse Ox 06/11/19 12:15 77 16 131/78 96 06/11/19 12:05 73 14 129/75 96 06/11/19 11:55 96.8 F L 81 16 122/79 100 06/11/19 07:14 97.9 F 70 18 118/69 99 06/11/19 03:59 75 119/74 06/11/19 01:06 98.4 F 81 18 163/91 H 98 Pain Intensity Left Lower Knee: Pain Intensity: 2 Transfer of Care Handoff Completed per policy Notes Mental Status: alert / awake / arousable and participated in evaluation Patient Amnestic to Procedure: Yes Nausea / Vomiting: adequately controlled Pain: adequately controlled Airway Patency, RR, SpO2: stable & adequate BP & HR: stable & adequate Hydration State: stable & adequate Anesthetic Complications: no major complications apparent and Pt Satisfied with anesthetic care
[2019-06-11 12:45] LABS: Appearance Synovial Fluid CLOUDY; Color Synovial Fluid AMBER; Mononuclear WBC Synovial 69.8 %; Polynuclear WBC Synovial 30.2 %; RBC Synovial Fluid (A) 18000 /uL; Source Synovial Fluid KNEE; WBC Synovial Fluid (A) 281 /uL (0-200)
[2019-06-11] MEDS: SODIUM CHLORIDE 0.9% 1000ML 1,000 ML IV SCH ×2 (12:50→20:37)
[2019-06-11] MEDS ORDERED: KETOROLAC TROMETHAMINE 15 MG/ML VIAL IV SCH (13:00)
--- NOTE | 2019-06-11 13:01 | Operative Report ---
DATE OF OPERATION: 06/11/2019 PREOPERATIVE DIAGNOSES: 1. Left knee traumatic wound dehiscence. 2. Retained sutures. 3. Traumatic knee effusion. POSTOPERATIVE DIAGNOSES: 1. Left knee traumatic wound dehiscence. 2. Retained sutures. 3. Traumatic knee effusion. PROCEDURES: 1. Left knee irrigation and debridement, wound dehiscence including skin, fascia and patellar tendon. 2. Removal of sutures. 3. Aspiration, left knee effusion. SURGEON: Kvng Jimenez DO FLAGSETTER: None. ANESTHESIA: General with local. SPECIMENS: Left knee aspirate for aerobic, anaerobic, Gram stain and cell count with manual differential. DRAINS: None. COMPLICATIONS: None. BLOOD LOSS: 5 mL. PERTINENT HISTORY: This is a 64-year-old gentleman who is approximately 6 weeks status post total knee arthroplasty performed by Dr. Ledezma. 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 He had pain, swelling, bleeding, and difficulty with ambulation. He was taken to [facility] at which point, he told the staff that he wanted to be taken to [facility] and we made arrangements to the hospitalist service for transfer and eventual closure. Instructed the ER staff to irrigate the left knee, cleansed with Betadine and then packed it with a moist sterile lap sponges and covered with sterile dry dressing and an Gilberto wrap. The patient was n.p.o. and then scheduled for surgery as indicated. All potential risks, benefits, complications, alternatives, rehab, potential for incomplete relief of symptoms, need for further surgery, DVT, PE, , persistent pain, swelling, scarring, weakness, neurovascular injury, wound complications, hardware failure, catastrophic loss of his joint arthroplasty, need for revision, possible for latent infection and compromise of eventual outcome of the arthroplasty was discussed with the patient and his . They both understood the discussion and all questions were answered. The patient was then scheduled for surgery as indicated. DESCRIPTION OF PROCEDURE: The patient was taken to the operative suite, placed supine on the operating table. I reviewed consent and identification of proper operative site, the patient was anesthetized, LMA was placed. Tourniquet was placed high on the left thigh over cast padding. Left lower extremity was then sterilely prepped and draped in usual fashion, elevated and tourniquet inflated to 350 mmHg. Next, the left knee wound dehiscence was expanded proximally and distally approximately 1 cm. Skin rakes were placed. A careful debridement was performed with a 15 blade scalpel, forceps and rongeur. This was performed through the skin, fascia, and patellar tendon. There were sutures noted within the tissue and these were then removed with a hemostat and a forceps. Once all suture material was removed and a debridement had been completed, there was noted to be a large knee effusion in the left knee. At this time, pulsatile lavage was then used to irrigate the wound dehiscence with copious amounts of sterile normal saline with bacitracin 3 liters in total. After the irrigation was completed to insert, a compressive load was applied to the knee joint to assess for any leakage through the joint capsule. There was none, essentially the rationale was that there is a large effusion within the joint and applied pressure load, there should be some extrusion of the fluid into the area of dehiscence if there was communication. There was none. This was considered a fluid load test which the patient successfully passed. Once this was completed, the dehiscence was then closed using buried interrupted 2-0 Vicryl in the dermis and the skin was then closed using 3-0 nylon sutures. Next, an 18-gauge needle and 60 mL syringe was then used to aspirate the effusion of the left knee and this was sent for specimen, aerobic, anaerobic, Gram stain, cell count and manual diff to the laboratory. Next, an approximately 20 mL 0.5% Marcaine plain was injected around the wound dehiscence site for postoperative pain control and a sterile compressive dressing and a double Gilberto wrap was then applied to the left lower extremity. The tourniquet was released. The patient was awakened and taken to recovery in stable condition. I attest to the content of the Intraoperative Record and any orders documented therein. Any exception s are noted below.
[2019-06-11] MEDS: ACETAMINOPHEN 500 MG TAB PO SCH ×2 (14:29→21:40)
[2019-06-11] MEDS: CEFAZOLIN 2000MG 2,000 MG/15 ML SYR IV SCH ×2 (14:30→20:37)
[2019-06-11] MEDS: KETOROLAC TROMETHAMINE 15 MG/ML VIAL IV SCH ×2 (14:35→19:21)
--- NOTE | 2019-06-11 16:47 | Hospitalist Progress Note ---
Date of Service June 11, 2019 Assessment & Plan (1) Traumatic wound dehiscence: Traumatic wound dehiscence of left total knee replacement from 04/19/2019- S/p left knee replacement I&D with Dr. Jimenez Acetaminophen 1 g IV every 8 hours PRN mild pain or temperature. Morphine sulfate 2 mg IV every 4 hours as needed severe pain. Activity will be bedrest with bathroom privileges with nonweightbearing left leg. Cefazolin per ortho (2) Status post total left knee replacement: See above. (3) Hypertension: Resume amlodipine, losartan/HCTZ and aspirin. (4) Hyperlipidemia: resume atorvastatin (5) Hypothyroidism (acquired): resume levothyroxine (6) GERD (gastroesophageal reflux disease): resume protonix (7) Restless leg syndrome: No symptoms and no treatment at this time. (8) Gout: No symptoms and no treatment at this time (9) Hiatal hernia: resume protonix Subjective S/p OR for wound dehiscence. at bedside. Only complaint is fatigue Review of Systems Review of Systems: All systems reviewed & are unremarkable except as noted in HPI & below Physical Exam Physical Exam: General: no distress Eyes: normal inspection, PERLL Respiratory: chest non tender, clear to auscultation, normal breath sounds, no respiratory distress, no accessory muscle use Cardiac: regular rate and rhythm, no rub or gallop, no murmur, no edema, no jvd GI/: active bowel sounds, no abd pain or tenderness, soft, non distended Extremities: normal range of motion, normal strength, non tender Neuro/Psych: alert and oriented x 3, normal mood and affect Skin: normal color, dry Results & Data Vital Signs (Past 12 Hours) Vital Signs Temp Pulse Pulse Pulse Resp BP Pulse Ox 06/11/19 15:48 36.6 C 64 16 111/53 L 97 06/11/19 14:50 36.8 C 68 16 117/67 96 06/11/19 13:41 69 18 128/76 100 06/11/19 13:12 36.5 C 70 18 132/83 92 06/11/19 12:47 36.5 C 70 18 118/77 97 06/11/19 12:40 74 15 122/76 96 06/11/19 12:25 36.2 C L 73 15 121/74 96 06/11/19 12:15 77 16 131/78 96 06/11/19 12:05 73 14 129/75 96 06/11/19 11:55 36 C L 81 16 122/79 100 06/11/19 07:14 36.6 C 70 18 118/69 99 PG Care Time/CCT Total # of Minutes Spent Total Time Spent with Patient: Total time spent is greater than 50% in coordination of care (as documented) at patient's floor/unit and/or counseling p atient:
[2019-06-11] MEDS: ASPIRIN 81 MG ECTAB PO SCH (20:37)
[2019-06-11] MEDS: DOCUSATE SODIUM 100 MG CAP PO SCH (20:37)
[2019-06-11] MEDS ORDERED: SENNA 8.6 MG TAB PO SCH (21:00)
[2019-06-12] MEDS: KETOROLAC TROMETHAMINE 15 MG/ML VIAL IV SCH ×3 (02:00→06:18)
[2019-06-12] MEDS: ACETAMINOPHEN 500 MG TAB PO SCH ×2 (06:13→13:53)
[2019-06-12] MEDS ORDERED: LEVOTHYROXINE SODIUM 50 MCG TABLET PO SCH (06:30)
[2019-06-12 07:01] LABS: Hemoglobin 11.4 g/dL (14.0-18.0); Mean Corpuscular Hgb Conc 33.5 g/dL (32-36); Mean Corpuscular Volume 86.3 fL (80-100); Mean Platelet Volume 8.2 fL (7.4-10.4); Platelet Count 216 K/uL (130-400); RDW Coefficient of Variation 12.7 % (11.5-14.5); RDW Standard Deviation 40.3 fL (36.4-46.3); Red Blood Count 3.94 M/uL (4.7-6.1)
[2019-06-12 07:30] LABS: BUN Creatinine Ratio 16.5 (10-20); Calcium 8.5 mg/dl (8.5-10.1); Creatinine Clr Calc Pharmacy 75.9 ml/min; Est GFR (African American) 100.1; Est GFR (Non-African American) 86.4; Potassium 3.5 mmol/L (3.5-5.1)
[2019-06-12] MEDS: DOCUSATE SODIUM 100 MG CAP PO SCH (08:29)
[2019-06-12] MEDS: ASPIRIN 81 MG ECTAB PO SCH (08:30)
[2019-06-12] MEDS ORDERED: ASPIRIN 81 MG ECTAB PO SCH (09:00)
[2019-06-12] MEDS ORDERED: AMLODIPINE BESYLATE 5 MG TAB PO SCH (09:00)
[2019-06-12] MEDS ORDERED: MULTIVITAMIN TAB PO SCH (09:00)
[2019-06-12] MEDS ORDERED: ATORVASTATIN 20 MG TAB PO SCH (09:00)
[2019-06-12] MEDS ORDERED: LOSARTAN/HCTZ 50/12.5MG TAB PO SCH ×2 (09:00)
[2019-06-12] MEDS ORDERED: PANTOprazole 40 MG TAB PO SCH (09:00)
--- NOTE | 2019-06-12 11:39 | Progress Note ---
DATE: 06/12/2019 SUBJECTIVE: The patient is currently lying in bed, sitting up, awake and alert without any complaints. Pain is controlled. He denies any shortness of breath, chest pain or lightheadedness. The patient states that he has been ambulating freely about the hallways today and was doing some physical therapy this morning as well. He is hoping to go home soon. OBJECTIVE: Dressings are clean, dry and intact. Calves were soft, nontender, neurovascularly intact. Toes were mobile. Currently, the patient can sit at the bedside and bend the knee to approximately 90 degrees without difficulty or pain. He states that if he tries to go past 90 degrees, he can feel the wound stretching a little bit. Otherwise, exam is benign. ASSESSMENT: Left knee wound dehiscence, status post fall. PLAN: Continue PT, OT protocol. The patient is doing quite well and left knee aspirate was taken during the procedure and sent for culture, it was showing no organisms and many WBCs. Plans will be to discharge the patient home today and will put him on a short-term antibiotic due to the nature of his injury. We will follow the cultures as they become available and he will follow up with Dr. Ledezma in the next 10-14 days. He will continue his PT per outpatient and just do gentle range of motion at this time with no aggressive range of motion protocol. This was discussed with the patient in detail and he understands. Case discussed with [facility] Hospital[place] service. BELEM Walton dc
--- NOTE | 2019-06-12 16:49 | Discharge Summary ---
Date of Service June 12, 2019 Admission HPI Per Admitting Provider This is a patient who had his left knee replaced by Dr. Ledezma ~7-8 weeks ago. He was doing well and states he was about to be discharged from . He sustained a fall onto the anterior aspect of the left knee and the incision opened up. He was brought to [facility] to be admitted and he is now being set up for surgical I & D of the knee. Admission Exam Per Admitting Provider The patient is awake, alert and oriented 3, well developed and well nourished, lying in bed and in no acute distress. HEENT--PERRL, EOMI, mucous membranes and oropharynx normal. Neck--supple. No JVD. No bruits. Thyroid normal, trachea midline, no adenopathy. Heart--normal S1 and S2. No murmurs, rubs or gallops. Lungs--clear bilaterally, no respiratory distress, no accessory muscle use. Abdomen--normal bowel sounds and soft. Nontender. Nondistended, no hernias or masses, no organomegaly. Extremities--no cyanosis or clubbing. No edema. There are good distal pulses b /l. Dermatologic--normal skin turgor, normal color, no abnormal lymph nodes, no rash. Neurologic--cranial nerves II through XII grossly intact. Rheumatologic--left knee wrapped with wet-to-dry with BEKAH over top as discharged from [facility]. Psychiatric--normal affect. Principal Diagnosis Wound dehiscence Discharge Exam General: Resting comfortably in no apparent distress; A&OX3 HEENT: NC/AT; PERRLA with EOMI; [place] conjunctiva, MMM. No erythema of posterior pharynx Neck: Supple and nontender Cardiac: RRR Lungs: CTA bilaterally Abdomen: Bowel normoactive X 4; Nontender to palpation Extremities: Warm. No edema present Neuro: No focal weakness Skin: No rash Discharge Data Allergies Allergy/AdvReac Type Severity Reaction Status Date / Time levofloxacin [From Levaquin] AdvReac Mild Nausea Verified 04/19/19 06:14 Consultations 06/11/19 01:33 Consult Orthopedic Surgery Routine 06/11/19 01:35 Consult Case Management - Discharge Planning Routine 06/11/19 11:42 Consult Case Management - Discharge Planning Routine Procedures Performed Operation Date: 06/11/19 09:30 Actual Procedures p Incision and Debridment Left Knee, Skin, Fascia, and Tendon Debridment of wound dehiscence, Removal of suture(Left) - Kvng Jimenez DO Hospital Course (1) Traumatic wound dehiscence: H/o left total knee replacement from 04/19/2019. Traumatic wound dehiscence prior to arrival. S/p procedure on 06/11/19: 1. Left knee irrigation and debridement, wound dehiscence including skin, fascia and patellar tendon. 2. Removal of sutures. 3. Aspiration, left knee effusion. Will complete course of Keflex at home. F/u with orthopedics as outpatient. (2) Status post total left knee replacement: See above. (3) Hypertension: Resumed home meds. (4) Hyperlipidemia: Resumed home statin. (5) Hypothyroidism (acquired): Resumed home levothyroxine. (6) GERD (gastroesophageal reflux disease): PPI. (7) Restless leg syndrome: No treatment at this time. (8) Gout: No treatment at this time (9) Hiatal hernia: PPI. Pt. was stable for discharge to home on 06/12/19. Total Time Total Time Spent Total Time Spent (In Minutes): >30 minutes Total Time Includes: Examination of the Patient, Discharge Planning, Medication Reconciliation, Communication With Other Providers and Other Discharge Plan Discharge Items Patient Disposition: Home - Self-Care Reason For Visit: OPEN KNEE WOUND Discharge Diagnosis: Left Knee Wound Dehiscence s/p TKA Discharge Goals: Decrease discomfort and Improve function Activity: Per 'Additional Instructions' section Bathing: May shower/bathe in 3 days Bathing Comment: No tub baths. Do not soak wound. Non-emergency contact: Surgeon Call non-emergency contact if: your pain is worsening, your temperature is above 101.5, your wound has increased redness and your wound has increased drainage Follow-up/Referrals: Cory Cormier [Primary Care Provider] - Diet: Regular Addtl Provider Instructions: Follow your TKA protocol instructions you received after having your Left TKA done No aggressive ROM just yet but you may continue your PT protocol. You can shower in 72 hours from the day of your surgery. Change your dressing tomorrow. 06/13/19. Then change daily for 1 week. You can use regular gauze to keep wound covered until seen back in the office. If you have a Silverlon dressing (band aid looking type), leave it on for 7 days and then remove. (You can shower with this type of dressing but not the regular gauze dressing) Follow up with Dr Ledezma in 10-14 days. Call for appointment. [phone] Prescriptions: New aspirin [Ecotrin Low Strength] 81 mg Tablet,Delayed Release (Dr/Ec) 81 mg PO BID 14 Days Qty: 28 RF: 0 acetaminophen [Tylenol Extra Strength] 500 mg Tablet 1,000 mg PO Q8 7 Days Qty: 42 RF: 0 tramadol 50 mg Tablet 50 mg PO .q4-6h PRN (Reason: pain) Qty: 18 RF: 0 cephalexin 500 mg capsule 500 mg PO QID 7 Days Qty: 28 RF: 0 Continued atorvastatin 20 mg Tablet 20 mg PO QAM RF: 0 amlodipine 5 mg Tablet 5 mg PO QAM RF: 0 losartan-hydrochlorothiazide 100-25 mg Tablet 1 tab PO QAM RF: 0 levothyroxine 50 mcg Tablet 50 mcg PO QAM RF: 0 omeprazole 20 mg Tablet,Delayed Release (Dr/Ec) 20 mg PO QAM RF: 0 meloxicam 15 mg tablet RF: 0 Discontinued oxycodone 5 mg Tablet 5 mg PO Q6H PRN (Reason: pain) Qty: 30 RF: 0 aspirin [Ecotrin Low Strength] 81 mg tablet,delayed release (DR/EC) RF: 0 Stand-Alone Forms: [facility], [facility] Pain [facility] Discharge Orders: Discharge Order (Routine); Ordered 06/12/19 Ordered By: Kemar Galindo Admission Data Admit Date/Time: 06/11/19 00:35 Attending Provider: Shila Meraz Admit Provider: Kvng Jimenez Primary Care Provider: Cory Cormier Other Providers: Brandyn Carballo ; Kvng Jimenez Service: Surgical Services Other Interventions: Discharge Summary Assessment (RN) Last Done: 06/12/19 12:36 DC Date/Time DO NOT enter until pt leaves facility: 06/12/19 14:29 Supervising Physician Co-Signing Physician Notes PA Supervision Note: I did not personally see or examine the patient today, but I verified all brice points of BILL Sanchez's assessment and plan with the following exceptions/additions: None
== END 2019-06-12 14:29 | disposition home or self-care (01) | DRG 903 ==
LOC: SUATTDRO 06-11 00:35 → 3W 06-11 00:35